=== PATIENT | female | born 1970 | race Caucasian/White ===

== ENCOUNTER → 2021-06-22 | Outpatient (REF) ==
--- NOTE | 2021-06-22 12:17 | REP ---
INDICATION: ARTHRITIS. COMPARISON: None TECHNIQUE: Four views left hand FINDINGS: There is intra digital joint space narrowing throughout. This is moderate. Tiny marginal osteophytes are seen involving the D IP joints of digits 2 through 4. There is no nehemiah periarticular osteopenia or marginal erosions. There is no acute fracture, dislocation, or subluxation. Degenerative changes are seen involving the wrist particularly the 1st carpometacarpal joint space. IMPRESSION: Chronic changes as described above. <Electronically signed by Eliud Colon > 06/22/21 [id number]
--- NOTE | 2021-06-22 12:19 | REP ---
INDICATION: ARTHRITIS COMPARISON: None TECHNIQUE: Five views FINDINGS: There is mild tricompartmental marginal osteophytosis with slight medial compartmental and patellofemoral joint space narrowing. There is no acute fracture, dislocation, or subluxation. IMPRESSION: Chronic changes as described above. <Electronically signed by Eliud Colon > 06/22/21 [id number]
== END ==
LOC: M PLAIMG 10:55
PROVIDERS: ATTEND Internal Medicine
DX: M19.90 Unspecified osteoarthritis, unspecified site (principal)